=== PATIENT | female | born 1960 | race Caucasian/White ===

== ENCOUNTER 2024-02-02 08:00 | Outpatient (CLI) | payer MEDICARE, MEDICAID ==
--- NOTE | 2024-02-02 21:59 | XRAY Report ---
PROCEDURE: Hand 3+V RT INDICATIONS: RIGHT FINGER PAIN/FALL TECHNIQUE: 3 views of the hand(s) acquired. COMPARISON: None. FINDINGS: Bones: There is mild posterior dislocation of the fifth DIP joint without visualized fracture. Soft tissues: No suspicious soft tissue calcifications or masses. IMPRESSION: Mild posterior dislocation of the fifth DIP joint without visualized fracture. Reviewed by: Caterina Parks MD on 02/02/2024 9:57 PM PDT Approved by: Caterina Parks MD on 02/02/2024 9:57 PM PDT Station ID: [id number]
--- NOTE | 2024-02-02 22:00 | XRAY Report ---
PROCEDURE: Finger(s) RT INDICATIONS: POST REDUCTION/PINKIE FINGER RIGHT TECHNIQUE: AP hand, 2 views of the fifth finger(s) acquired. COMPARISON: x-ray finger 02/02/2024.. FINDINGS: Bones: Interval reduction of the fifth DIP joint dislocation images demonstrate relatively unchanged anatomic appearance. No visualized fracture. Soft tissues: No suspicious soft tissue calcifications or masses. IMPRESSION: Persistent fifth digit DIP dislocation without significantly improved anatomic alignment with reducti on. Reviewed by: Caterina Parks MD on 02/02/2024 9:59 PM PDT Approved by: Caterina Parks MD on 02/02/2024 9:59 PM PDT Station ID: [id number]
--- NOTE | 2024-02-02 22:01 | XRAY Report ---
PROCEDURE: Finger(s) RT INDICATIONS: POST REDUCTION/2ND ATTEMPT/DISLOCATION DIP PINKIE RIGHT TECHNIQUE: AP hand, 2 views of the fifth finger(s) acquired. COMPARISON: X-ray finger 02/02/2024 FINDINGS: Bones: No fractures or dislocations. No suspicious bony lesions. End for reduction with good talia omic alignment of previous fifth DIP joint dislocation. Soft tissues: No suspicious soft tissue calcifications or masses. IMPRESSION: Good anatomic alignment of fifth DIP joint reduction without visualized fracture. Reviewed by: Caterina Parks MD on 02/02/2024 9:59 PM PDT Approved by: Caterina Parks MD on 02/02/2024 9:59 PM PDT Station ID: [id number]
== END 2024-02-02 23:59 | disposition home or self-care (01) ==
LOC: DI.S 08:00
PROVIDERS: ATTEND Registered Nurse
DX: S63.296A Dislocation of distal interphalangeal joint of right little finger, initial encounter (principal)